=== PATIENT | female | born 1950 | race American Indian/Alaskan Native ===

== ENCOUNTER 2016-08-09 20:13 | Emergency (ER) | payer MEDICARE ==
[2016-08-09 20:18] VITALS: BP 147/68
[2016-08-09] MEDS ORDERED: methylPREDNISolone Sodium Succinate 125 MG/2 ML SDV IM ONE (20:28)
--- NOTE | 2016-08-09 20:30 | EDM.PDOC ---
ED HPI HEADACHE COMPLAINT - General Chief Complaint: Headache Stated Complaint: HEADACHE,POSS SINUS PROBLEM Time Seen by Provider: 08/09/16 20:28 Source of Information: Reports: Patient History Limitations: Reports: No limitations - History of Present Illness INITIAL COMMENTS - FREE TEXT/NARRATIVE: gives recurrent h/o sinus problem with headache congestion hard to sleep feels whoosy when turns head too quickly. also throat hurts - Related Data Allergies/ADRs: Allergies Allergy/AdvReac Type Severity Reaction Status Date / Time rubber Allergy Itching Uncoded 08/09/16 20:20 Home Meds: Home Meds Aspirin [Halfprin] 81 mg PO DAILY 05/29/15 [History] Losartan [Cozaar] 25 mg PO DAILY 05/29/15 [History] metFORMIN HCl [Metformin HCl] 1,000 mg PO BIDMEALS 05/29/15 [History] Venlafaxine [Effexor XR] 37.5 mg PO DAILY 12/05/15 [History] cycloSPORINE [Restasis] 1 drop EYEBOTH BID 12/05/15 [History] Acetaminophen 650 mg PO ASDIRECTED 04/09/16 [History] Cholecalciferol (Vitamin D3) [Cholecalciferol] 1,000 unit PO DAILY 04/09/16 [ History] Fluticasone Propionate [Flonase Allergy Relief] 1 spray NASBOTH DAILY 04/09/16 [ History] Ibuprofen 400 mg PO ASDIRECTED 04/09/16 [History] Butalbital/Aspirin/Caffeine [Fiorinal 50-325-40 MG] 1 tab PO TID 05/09/16 [ History] Past Medical History HEENT History: Reports: Allergic rhinitis, Impaired vision, Other (see below) Other HEENT History: wears glasses Cardiovascular History: Reports: Hypertension, Other (see below) Other Cardiovascular History: dyslipidemia Respiratory History: Reports: None Gastrointestinal History: Reports: GERD Genitourinary History: Reports: None DIE [employer]ER History: Reports: Musculoskeletal History: Reports: Osteoarthritis Neurological History: Reports: None Psychiatric History: Reports: Anxiety, Depression Endocrine/Metabolic History: Reports: Diabetes, type II, Obesity/BMI 30+ Hematologic History: Reports: Other (see below) Other Hematologic History: Vitamin D deficiency. vitamin B 12 deficiency Immunologic History: Reports: None Oncologic (Cancer) History: Reports: None Dermatologic History: Reports: None - Past Surgical History Head Surgeries/Procedures: Reports: None HEENT Surgical History: Reports: None Cardiovascular Surgical History: Reports: None Respiratory Surgical History: Reports: None GI Surgical History: Reports: EGD Female Surgical History: Reports: Tubal ligation Endocrine Surgical History: Reports: None Neurological Surgical History: Reports: None Musculoskeletal Surgical History: Reports: None Oncologic Surgical History: Reports: None Dermatological Surgical History: Reports: None Social & Family History - Family History Family Medical History: Noncontributory - Tobacco Use Smoking Status *Q: Never Smoker Second Hand Smoke Exposure: No - Caffeine Use Caffeine Use: Reports: None - Recreational Drug Use Recreational Drug Use: No ED ROS GENERAL - Review of Systems Review Of Systems: ROS reveals no pertinent complaints other than HPI. - Physical Exam Exam: See Below Exam Limited By: No limitations General Appearance: alert, WD/WN, no apparent distress Eye Exam: bilateral eye: PERRL (pupils ER @ 4mm) Ears: normal external exam, normal canal, hearing grossly normal, normal TMs Throat/Mouth: Normal voice, No airway compromise, Inflammation Head Exam: atraumatic Neck: non-tender, full range of motion Respiratory/Chest: no respiratory distress, no accessory muscle use Cardiovascular: regular rate, rhythm GI/Abdominal: soft, non tender Psychiatric: flat affect Skin Exam: Warm, Dry Course - Vital Signs Last Recorded V/S: Last Vital Signs Temp 36.0 C 08/09/16 20:18 Pulse 86 08/09/16 20:18 Resp 18 08/09/16 20:18 BP 147/68 H 08/09/16 20:18 Pulse Ox 97 08/09/16 20:18 - Orders/Labs/Meds Orders: Active Orders 24 hr Category Date Time Status CULTURE STREP A CONFIRMATION [RM] Stat Lab 08/09/16 20:26 Results STREP SCRN A RAPID W CULT CONF [RM] Stat Lab 08/09/16 20:26 Results Meds: Medications Discontinued Medications Generic Name Dose Route Start Last Admin Trade Name Meka PRN Reason Stop Dose Admin Methylprednisolone Sodium Succinate 125 mg 08/09/16 20:28 08/09/16 20:32 Solu-Medrol IM 08/09/16 20:29 125 mg ONETIME ONE Administration - Re-Assessments/Exams Free Text/Narrative Re-Assessment/Exam: 08/09/16 20:50 negative result discussed with Pt Departure - Departure Time of Disposition: 20:50 Disposition: Home, Self-Care 01 Condition: good Clinical Impression: Sinusitis, Sinus headache Instructions: Sinus Headache, [id number] Forms: ED Department Discharge Additional Instructions: 1) try over the counter decongestants 2) don't sleep flat at night to sleep 3) follow up at clinic or recheck as needed rx given: medrol dospak - My Orders Last 24 Hours: My Active Orders 08/09/16 20:26 CULTURE STREP A CONFIRMATION [RM] Stat STREP SCRN A RAPID W CULT CONF [RM] Stat - Assessment/Plan Last 24 Hours: My Active Orders 08/09/16 20:26 CULTURE STREP A CONFIRMATION [RM] Stat STREP SCRN A RAPID W CULT CONF [RM] Stat
== END 2016-08-09 21:05 | disposition home or self-care (01) ==
LOC: DL.ED 20:13
DX: J32.9 Chronic sinusitis, unspecified (principal); I10 Essential (primary) hypertension; K21.9 Gastro-esophageal reflux disease without esophagitis; M19.90 Unspecified osteoarthritis, unspecified site; F41.9 Anxiety disorder, unspecified; F32.9 Major depressive disorder, single episode, unspecified; E11.9 Type 2 diabetes mellitus without complications; E66.9 Obesity, unspecified; Z79.899 Other long term (current) drug therapy; Z98.51 Tubal ligation status; Z91.09 Other allergy status, other than to drugs and biological substances; Z79.82 Long term (current) use of aspirin; Z79.84 Long term (current) use of oral hypoglycemic drugs
CPT/HCPCS: 87081; 87430; 96372; 99284; J2930; 99283

== ENCOUNTER 2021-09-19 23:27 | Emergency (ER) | payer MEDICARE, OTHER ==
[2021-09-20 00:23] LABS: ANION GAP 14.3 mEq/L (7-13)
[2021-09-20] MEDS ORDERED: Metoprolol Succinate 25 MG Tab.ER PO ONE (00:34)
== END 2021-09-20 00:55 | disposition home or self-care (01) ==
LOC: DL.ED 23:27
DX: I11.0 Hypertensive heart disease with heart failure (principal); E11.9 Type 2 diabetes mellitus without complications; E66.9 Obesity, unspecified; Z68.30 Body mass index [BMI] 30.0-30.9, adult; Z79.899 Other long term (current) drug therapy; Z79.82 Long term (current) use of aspirin; Z79.84 Long term (current) use of oral hypoglycemic drugs; Z91.040 Latex allergy status
CPT/HCPCS: 36415; 80053; 83880; 84443; 84484; 85025; 93005; 99283; A9270

== ENCOUNTER 2022-05-24 12:58 | Observation (INO) | payer MEDICARE, OTHER ==
[2022-05-24] MEDS ORDERED: Sodium Chloride 0.9% 10 ML Syringe FLUSH PRN (13:06)
[2022-05-24] MEDS ORDERED: Sodium Chloride 0.9% 1,000 ML IV ONE (13:07)
[2022-05-24 13:45] LABS: ANION GAP 13.6 mEq/L (7-13)
[2022-05-24 14:00] LABS: CORONAVIRUS COVID-19 NAA NEGATIVE (NEGATIVE)
[2022-05-24] MEDS ORDERED: Ondansetron 4 MG/2 ML SDV IVPUSH PRN (15:23)
[2022-05-24] MEDS ORDERED: Acetaminophen/HYDROcodone 325-5 MG Tab PO PRN (15:23)
[2022-05-24] MEDS ORDERED: Polyethylene Glycol 3350 Powder 17 GM Packet PO PRN (15:23)
[2022-05-24] MEDS ORDERED: HYDROmorphone 0.5 MG/0.5 ML Syringe IVPUSH PRN (15:23)
[2022-05-24] MEDS ORDERED: Bisacodyl 5 MG Tab PO PRN (15:23)
[2022-05-24] MEDS ORDERED: Magnesium Hydroxide 400 MG/5 ML Susp 30 ML Cup PO PRN (15:23)
[2022-05-24] MEDS ORDERED: Albuterol/Ipratropium 3.0-0.5 MG/3 ML Neb Soln NEB PRN (15:23)
[2022-05-24] MEDS ORDERED: Acetaminophen 325 MG Tab PO PRN (15:23)
[2022-05-24] MEDS ORDERED: Meclizine 12.5 MG Tab PO PRN (15:23)
[2022-05-24 15:25] LABS: RESPIRATORY SYNCYTIAL VIR NAA NEGATIVE (NEGATIVE)
[2022-05-24] MEDS ORDERED: 50% Dextrose in Water 50 ML Syringe IVPUSH PRN (15:35)
[2022-05-24] MEDS ORDERED: Glucagon,Human Recombinant 1 MG Vial IM PRN (15:35)
[2022-05-24 16:03] LABS: HEMOGLOBIN A1C 7.1 % (<5.7)
[2022-05-24] MEDS: Sodium Chloride 0.9% 1,000 ML IV SCH ×2 (16:21→23:32)
[2022-05-24] MEDS: Insulin Lispro 100 Units/ML 3 ML Vial SUBCUT SCH (17:16)
[2022-05-24 20:33] LABS: ANION GAP 12.4 mEq/L (7-13)
[2022-05-24] MEDS ORDERED: Non-Formulary Medication 1 Each (Cyclosporine [Restasis] 1 EACH Each) EYEBOTH SCH (21:00)
[2022-05-24] MEDS: Latanoprost 0.005% Ophth Soln 2.5 ML Bottle EYEBOTH SCH (22:36)
[2022-05-24] MEDS: Fluticasone NASAL Spray 16 GM Bottle NASBOTH SCH (22:37)
[2022-05-24] MEDS: Clotrimazole 1% Crm 30 GM Tube TOP SCH (22:37)
[2022-05-24] MEDS: Menthol 10%/Methyl Salicylate 15% 85 GM Tube TOP SCH (22:39)
[2022-05-25] MEDS: Insulin Lispro 100 Units/ML 3 ML Vial SUBCUT SCH ×4 (02:13→18:30)
[2022-05-25] MEDS: Sodium Chloride 0.9% 1,000 ML IV SCH (06:00)
[2022-05-25 06:45] LABS: ANION GAP 11.9 mEq/L (7-13)
[2022-05-25] MEDS: Multivitamins with Iron/Calcium/Folic Acid/Minerals Tab PO SCH (08:32)
[2022-05-25] MEDS: Metoprolol Succinate 25 MG Tab.ER PO SCH (08:32)
[2022-05-25] MEDS: Loratadine 10 MG Tab PO SCH (08:32)
[2022-05-25] MEDS: Aspirin 81 MG Tab.EC PO SCH (08:33)
[2022-05-25] MEDS: Menthol 10%/Methyl Salicylate 15% 85 GM Tube TOP SCH ×3 (08:35→20:36)
[2022-05-25] MEDS: Fluticasone NASAL Spray 16 GM Bottle NASBOTH SCH ×2 (08:39→20:35)
[2022-05-25] MEDS: Clotrimazole 1% Crm 30 GM Tube TOP SCH ×2 (08:40→20:35)
[2022-05-25] MEDS: Latanoprost 0.005% Ophth Soln 2.5 ML Bottle EYEBOTH SCH (20:36)
[2022-05-26 06:51] LABS: ANION GAP 9.7 mEq/L (7-13)
[2022-05-26] MEDS: Aspirin 81 MG Tab.EC PO SCH (08:20)
[2022-05-26] MEDS: Metoprolol Succinate 25 MG Tab.ER PO SCH (08:20)
[2022-05-26] MEDS: Menthol 10%/Methyl Salicylate 15% 85 GM Tube TOP SCH (08:21)
[2022-05-26] MEDS: Multivitamins with Iron/Calcium/Folic Acid/Minerals Tab PO SCH (08:21)
[2022-05-26] MEDS: Clotrimazole 1% Crm 30 GM Tube TOP SCH (08:21)
[2022-05-26] MEDS: Insulin Lispro 100 Units/ML 3 ML Vial SUBCUT SCH ×2 (08:22→11:57)
[2022-05-26] MEDS: Loratadine 10 MG Tab PO SCH (08:22)
[2022-05-26] MEDS ORDERED: Magnesium Sulfate/Water 2 GM in Premix Bag 1 BAG IV ONE (08:22)
[2022-05-26] MEDS: Fluticasone NASAL Spray 16 GM Bottle NASBOTH SCH (08:22)
[2022-05-26] MEDS ORDERED: predniSONE 20 MG Tab PO ONE (10:37)
[2022-05-26] MEDS ORDERED: PSEUDOEPHEDRINE PO PRN (10:39)
[2022-05-26] MEDS ORDERED: Acetaminophen 500 MG Tab PO PRN (10:39)
[2022-05-26] MEDS ORDERED: LORATADINE PO PRN (10:39)
[2022-05-26] MEDS ORDERED: Cyanocobalamin (Vitamin B12) 1,000 MCG/ML SDV IM SCH (10:45)
[2022-05-26] MEDS ORDERED: Non-Formulary Medication 1 Each (Metformin Hcl [Metformin Hcl] 1,000 MG Tablet) PO SCH (18:00)
[2022-05-26] MEDS ORDERED: Non-Formulary Medication 1 Each (Calcium Citrate/Vitamin D3 [Calcium Citrate - Vit D3 Tab] PO SCH (21:00)
[2022-05-26] MEDS ORDERED: atorvaSTATin 20 MG Tab PO SCH (21:00)
[2022-05-27] MEDS ORDERED: Non-Formulary Medication 1 Each (Cholecalciferol (Vitamin D3) [Cholecalciferol] 1 GM Cryst PO SCH (09:00)
[2022-05-27] MEDS ORDERED: Famotidine 20 MG Tab PO SCH (09:00)
[2022-05-27] MEDS ORDERED: Non-Formulary Medication 1 Each (Insulin Detemir 100 UNIT/ML Insuln.Pen) SQ SCH (09:00)
[2022-05-27] MEDS ORDERED: Losartan 50 MG Tab PO SCH (09:00)
[2022-05-27] MEDS ORDERED: Chlorthalidone 25 MG Tab PO SCH (09:00)
[2022-05-27] MEDS ORDERED: Venlafaxine 37.5 MG Cap.ER PO SCH (09:00)
[2022-05-27] MEDS ORDERED: ALOGLIPTIN BENZOATE 12.5 MG PO SCH (09:00)
== END 2022-05-26 11:30 | disposition home or self-care (01) ==
LOC: DL.ED 12:58 → DL.MS 14:48 → DL.ED 14:59
PROVIDERS: ADMIT Internal Medicine; ATTEND Internal Medicine
DX: N17.9 Acute kidney failure, unspecified (principal); E78.5 Hyperlipidemia, unspecified; I12.9 Hypertensive chronic kidney disease with stage 1 through stage 4 chronic kidney disease, or unspecified chronic kidney disease; N18.30 Chronic kidney disease, stage 3 unspecified; E11.22 Type 2 diabetes mellitus with diabetic chronic kidney disease; K21.9 Gastro-esophageal reflux disease without esophagitis; M19.90 Unspecified osteoarthritis, unspecified site; E55.9 Vitamin D deficiency, unspecified; E53.8 Deficiency of other specified B group vitamins; G47.33 Obstructive sleep apnea (adult) (pediatric); J30.9 Allergic rhinitis, unspecified; E78.00 Pure hypercholesterolemia, unspecified; F41.9 Anxiety disorder, unspecified; F32.A Depression, unspecified; E66.9 Obesity, unspecified; Z79.899 Other long term (current) drug therapy; Z79.84 Long term (current) use of oral hypoglycemic drugs; Z79.82 Long term (current) use of aspirin; Z86.16 Personal history of COVID-19; Z98.890 Other specified postprocedural states; Z20.822 Contact with and (suspected) exposure to COVID-19; Z91.040 Latex allergy status
CPT/HCPCS: 0241U; 36415; 70450; 76700; 80053; 80074; 80143; 81001; 82009; 82306; 82947; 83036; 83690; 83735; 83880; 84100; 84439; 84443; 84484; 85025; 85651; 86140; 87252; 93005; 93010; 96360; 96361; 96365; 96366; 99222; 99232; 99238; 99284; 99285-25; A9270-GY; G0378; J1815-GY; J3475; J3490; J7030; J7512

== ENCOUNTER 2022-07-25 06:29 | Day surgery (SDC) | payer MEDICARE, OTHER ==
[~2022-07-25 06:29] MED LIST: Dextrose 5%-0.45% NaCl 1,000 ML IV SCH; Sodium Chloride 0.9% 10 ML Syringe FLUSH PRN; Sodium Chloride 0.9% 10 ML Syringe FLUSH SCH
[2022-07-25] MEDS ORDERED: fentaNYL 100 MCG/2 ML SDV IV ONE ×3 (06:30→07:05)
[2022-07-25] MEDS ORDERED: Midazolam 1 MG/ML 2 ML SDV IV ONE ×3 (06:30→07:06)
[2022-07-25] MEDS ORDERED: fentaNYL 100 MCG/2 ML SDV ONE (06:56)
[2022-07-25] MEDS ORDERED: Midazolam 1 MG/ML 2 ML SDV ONE (06:56)
== END 2022-07-25 08:53 | disposition home or self-care (01) ==
LOC: DL.ENDO 06:29
PROVIDERS: ATTEND Internal Medicine Gastroenterology
DX: Z12.11 Encounter for screening for malignant neoplasm of colon (principal); K29.50 Unspecified chronic gastritis without bleeding; K22.70 Barrett's esophagus without dysplasia; K21.00 Gastro-esophageal reflux disease with esophagitis, without bleeding; E66.09 Other obesity due to excess calories; E11.9 Type 2 diabetes mellitus without complications; I10 Essential (primary) hypertension; F41.1 Generalized anxiety disorder; F32.A Depression, unspecified; E53.8 Deficiency of other specified B group vitamins; D50.9 Iron deficiency anemia, unspecified; G47.33 Obstructive sleep apnea (adult) (pediatric); E55.9 Vitamin D deficiency, unspecified; E78.5 Hyperlipidemia, unspecified; N17.0 Acute kidney failure with tubular necrosis; Z79.82 Long term (current) use of aspirin; Z68.29 Body mass index [BMI] 29.0-29.9, adult
CPT/HCPCS: 43239; 87077; 88305; J2250; J3010; J7042

== ENCOUNTER 2022-08-23 05:14 | Day surgery (SDC) | payer MEDICARE, OTHER ==
[2022-08-23] MEDS ORDERED: fentaNYL 100 MCG/2 ML SDV IV ONE ×4 (05:15→06:41)
[2022-08-23] MEDS ORDERED: Midazolam 1 MG/ML 2 ML SDV IV ONE ×7 (05:15→06:39)
[2022-08-23] MEDS ORDERED: Dextrose 5%-0.45% NaCl 1,000 ML IV SCH (06:00)
[2022-08-23] MEDS ORDERED: fentaNYL 100 MCG/2 ML SDV ONE (06:08)
[2022-08-23] MEDS ORDERED: Midazolam 1 MG/ML 2 ML SDV ONE (06:08)
== END 2022-08-23 08:50 | disposition home or self-care (01) ==
LOC: DL.ENDO 05:14
PROVIDERS: ATTEND Internal Medicine Gastroenterology
DX: Z12.11 Encounter for screening for malignant neoplasm of colon (principal); K57.30 Diverticulosis of large intestine without perforation or abscess without bleeding; E11.9 Type 2 diabetes mellitus without complications; K22.70 Barrett's esophagus without dysplasia; I10 Essential (primary) hypertension; F41.1 Generalized anxiety disorder; G47.33 Obstructive sleep apnea (adult) (pediatric); F32.A Depression, unspecified; K21.9 Gastro-esophageal reflux disease without esophagitis; D64.9 Anemia, unspecified; E53.8 Deficiency of other specified B group vitamins; E78.5 Hyperlipidemia, unspecified; E66.09 Other obesity due to excess calories; Z91.040 Latex allergy status; Z79.899 Other long term (current) drug therapy; Z68.29 Body mass index [BMI] 29.0-29.9, adult
CPT/HCPCS: G0121; J2250; J3010; J7042

== ENCOUNTER 2022-10-12 19:22 | Emergency (ER) | payer MEDICARE, OTHER ==
[2022-10-12] MEDS ORDERED: Doxycycline Monohydrate 100 MG Cap PO ONE (19:53)
== END 2022-10-12 20:05 | disposition home or self-care (01) ==
LOC: DL.ED 19:22
DX: S70.362A Insect bite (nonvenomous), left thigh, initial encounter (principal); E78.00 Pure hypercholesterolemia, unspecified; K21.9 Gastro-esophageal reflux disease without esophagitis; I12.9 Hypertensive chronic kidney disease with stage 1 through stage 4 chronic kidney disease, or unspecified chronic kidney disease; E11.22 Type 2 diabetes mellitus with diabetic chronic kidney disease; N18.30 Chronic kidney disease, stage 3 unspecified; M19.90 Unspecified osteoarthritis, unspecified site; Z86.16 Personal history of COVID-19; Z91.048 Other nonmedicinal substance allergy status; Z79.82 Long term (current) use of aspirin; Z79.4 Long term (current) use of insulin; Z79.899 Other long term (current) drug therapy; W57.XXXA Bitten or stung by nonvenomous insect and other nonvenomous arthropods, initial encounter
CPT/HCPCS: 99281; A9270; 99283